=== PATIENT | female | born 1980 | race African-American/Black ===

== ENCOUNTER 2017-12-23 18:05 | Outpatient (CLI) ==
--- NOTE | 2017-12-24 14:57 | DI ---
EXAM: Right knee, four views HISTORY: Tear or meniscus COMPARISON: None. FINDINGS: The alignment is normal. Joint spaces appear normal. No fracture is identified. IMPRESSION: No fracture or dislocation is identified.
== END 2017-12-23 18:06 | disposition home or self-care (01) ==
LOC: RAD 18:05
PROVIDERS: ATTEND Physician Assistant
DX: S83.206A Unspecified tear of unspecified meniscus, current injury, right knee, initial encounter (principal)